=== PATIENT | female | born 1995 | race Caucasian/White ===

== ENCOUNTER 2020-10-08 07:40 | Emergency (ER) | payer BC ==
[~2020-10-08] VITALS: Ht 170.2 cm; Wt 90.9 kg
[2020-10-08] MEDS ORDERED: LAMICTAL150 M1 PO (08:43)
[2020-10-08] MEDS ORDERED: ROWEEPRA500 MG PO (08:43)
[2020-10-08 08:55] VITALS: BP 135/84
== END 2020-10-08 10:59 | disposition home or self-care (01) | DRG 563 ==
LOC: ED 07:40
PROC: 0RSJXZZ Reposition Right Shoulder Joint, External Approach (ICD-10-PCS; principal; 2020-10-08)
DX: M24.411 Recurrent dislocation, right shoulder (principal)